=== PATIENT | female | born 1985 | race Caucasian/White ===

== ENCOUNTER 2016-10-01 05:42 | Emergency (ER) | payer SELFPAY | END 2016-10-01 05:50 | disposition left against medical advice (07) | LOC: ER 05:50 | DX: S00.83XA Contusion of other part of head, initial encounter (principal); M54.5 Low back pain; Z53.21 Procedure and treatment not carried out due to patient leaving prior to being seen by health care provider; V49.49XA Driver injured in collision with other motor vehicles in traffic accident, initial encounter; Y93.89 Activity, other specified; Y99.8 Other external cause status; Y92.488 Other paved roadways as the place of occurrence of the external cause | CPT/HCPCS: 99281 ==